=== PATIENT | female | born 1930 | race Caucasian/White ===

== ENCOUNTER 2018-09-09 15:20 | Inpatient (IN) | payer MEDICARE, BC ==
[2018-09-09] MEDS: Sodium Chloride 0.9% 1,000 ML IV SCH (17:10)
[2018-09-09] MEDS ORDERED: Phytonadione 5 MG in Sodium Chloride 0.9% 50 ML IV ONE (18:55)
[2018-09-09] MEDS ORDERED: Bisacodyl 5 MG Tab PO PRN (18:59)
[2018-09-09] MEDS ORDERED: Ondansetron 4 MG/2 ML SDV IV PRN (18:59)
[2018-09-09] MEDS ORDERED: Acetaminophen 325 MG Tab PO PRN (18:59)
[2018-09-10] MEDS: Sodium Chloride 0.9% 1,000 ML IV SCH ×2 (00:20→07:11)
--- NOTE | 2018-09-10 06:25 | EDM.PDOC ---
ED HPI GENERAL MEDICAL PROBLEM - General Chief Complaint: Gastrointestinal Problem Stated Complaint: BLOODY STOOLS Time Seen by Provider: 09/09/18 16:00 Source of Information: Reports: Patient History Limitations: Reports: No Limitations - History of Present Illness INITIAL COMMENTS - FREE TEXT/NARRATIVE: This pleasant 88-year-old woman who looks her age has had tar back pain or lower extremity pain or swelling. Her week. Coughs occasionally. No history of cancer recent colonoscopy ulcer disease salpingitis. Alcoholism. She is on Coumadin for atrial fibrillation has, congestive heart failure hypertension COPD dyslipidemia. ry stools last 2 days Jesusita's 56 bloody stools per day. Feels weak and tired and lightheaded denies chest pain shortness of breath headache neck stiffness - Related Data Allergies Allergy/AdvReac Type Severity Reaction Status Date / Time No Known Allergies Allergy Verified 02/18/14 13:51 Home Meds: Home Meds Lisinopril 10 mg PO DAILY 02/18/14 [History] Ciclopirox [Loprox 0.77% Crm] 1 applic TOP BID #1 tube 06/12/18 [Rx] Furosemide [Lasix] 60 mg PO BIDDIURETIC #120 tablet 06/12/18 [Rx] Potassium Chloride [Klor-Con 8] 8 meq PO BID #60 tab.er 06/12/18 [Rx] Acetaminophen 1,000 mg PO TID PRN 09/09/18 [History] Albuterol Sulfate [Proair Hfa] 2 inh INH Q4H PRN 09/09/18 [History] Calcium Carbonate/Vitamin D3 [Calcium Carb 500 MG] 1,250 mg PO DAILY 09/09/18 [ History] Cholecalciferol (Vitamin D3) [Vitamin D3] 1,000 units PO DAILY 09/09/18 [History ] Clopidogrel [Plavix] 75 mg PO DAILY 09/09/18 [History] Metoprolol Succinate [Toprol XL 50mg] 150 mg PO DAILY 09/09/18 [History] Pravastatin Sodium [Pravachol] 20 mg PO DAILY 09/09/18 [History] Warfarin [Coumadin] 5 mg PO DAILY 09/09/18 [History] Past Medical History HEENT History: Reports: Other (See Below) Other HEENT History: blepharitis roxane; pseudophakia-right; hyperopia; astigmatism ; prebyopia Cardiovascular History: Reports: Afib, High Cholesterol, Hypertension, Other ( See Below) Other Cardiovascular History: [facility] use of anticoagulant therapy Respiratory History: Reports: SOB NURSING SPECIALIST History: Reports: Musculoskeletal History: Reports: Osteoarthritis, Osteoporosis - Infectious Disease History Infectious Disease History: Reports: Mumps - Past Surgical History HEENT Surgical History: Reports: Cataract Surgery Musculoskeletal Surgical History: Reports: Other (See Below) Other Musculoskeletal Surgeries/Procedures:: total hip arthroplasty Social & Family History - Family History Family Medical History: Noncontributory - Tobacco Use Smoking Status *Q: Never Smoker Second Hand Smoke Exposure: No - Caffeine Use Caffeine Use: Reports: Coffee Other Caffeine Use: 2 cups a day Caffeine Use Comment: 1-2 cups per day - Recreational Drug Use Recreational Drug Use: No ED ROS GENERAL - Review of Systems Review Of Systems: See Below Constitutional: Reports: Other (Week slightly lightheaded) HEENT: Reports: No Symptoms, Other (Resecuring) Respiratory: Reports: No Symptoms Cardiovascular: Reports: No Symptoms, Other (A. fib) Endocrine: Reports: No Symptoms, Other (Hypothyroidism) GI/Abdominal: Reports: Other (No abdominal pain with associated melena past 2 days) : Reports: No Symptoms, Other (Occasional incontinence) Musculoskeletal: Reports: Other (Weakness) Skin: Reports: No Symptoms Neurological: Reports: Other (Weakness) Psychiatric: Reports: No Symptoms Hematologic/Lymphatic: Reports: Anemia Immunologic: Reports: No Symptoms ED EXAM, GENERAL - Physical Exam Exam: See Below Free Text/Narrative:: This asthenic 88-year-old woman looks slightly pale no jaundice no scleral icterus and is without abdominal pain but notes she has black stools for the last 2 days. Exam Limited By: No Limitations General Appearance: Alert, Mild Distress Eye Exam: Bilateral Eye: Normal Inspection, Other (Pale conjunctiva pal[place]bra ) Ear Exam: Bilateral Ear: Auricle Normal, Canal Normal, TM normal, Other ( Bilateral decreased hearing) Nose: Normal Inspection Throat/Mouth: Normal Inspection, Other (Dry oral mucosa) Head: Atraumatic Neck: Normal Inspection, Other (Normal bruits) Respiratory/Chest: No Respiratory Distress, Lungs Clear, Normal Breath Sounds, No Accessory Muscle Use, Chest Non-Tender, Other (Occasional posterior scattered rales) Cardiovascular: No Edema (S4 gallop), Systolic Murmur, Irregularly Irregular, Other (Atrial fibrillation with controlled rate) Peripheral Pulses: 1+: Radial (L), Radial (R) GI/Abdominal: Normal Bowel Sounds, Soft, Non-Tender, No Organomegaly, No Distention, No Abnormal Bruit, No Mass, Other (Black stool positive Hemoccult) (Female) Exam: Deferred Rectal (Female) Exam: Other ( decreased muscle tone rectum character) Neurological: Alert, Oriented, CN II-XII Intact, Normal Cognition, Normal Gait, Other (Absent deep tendon reflexes) Psychiatric: Normal Affect, Other (Quiet not anxious) Skin Exam: Warm, Dry, Intact, Pallor Course - Vital Signs Last Recorded V/S: Last Vital Signs Temp 36.6 C 09/10/18 04:00 Pulse 70 09/10/18 04:00 Resp 18 09/10/18 04:00 BP 125/75 09/10/18 04:00 Pulse Ox 96 09/10/18 04:00 - Orders/Labs/Meds Orders: Active Orders 24 hr Category Date Time Status Patient Status [ADT] Routine ADT 09/09/18 18:59 Active Cardiac Monitoring [RC] INTERMITTENT Care 09/09/18 19:06 Inactive EKG Documentation Completion [RC] ASDIRECTED Care 09/09/18 16:31 Active Intake and Output [RC] QSHIFT Care 09/09/18 19:06 Active Notify Provider Vital Signs [RC] ASDIRECTED Care 09/09/18 19:06 Active Oxygen Therapy [RC] PRN Care 09/09/18 18:59 Active Pulse Oximetry [RC] PRN Care 09/09/18 19:06 Active Up With Assistance [RC] ASDIRECTED Care 09/09/18 18:59 Active Vital Signs [RC] Q4H Care 09/09/18 18:59 Active Full Liquid Diet [DIET] Diet 09/09/18 Dinner Ordered Heart Healthy Diet [DIET] Diet 09/09/18 Dinner Ordered BASIC METABOLIC PANEL,BMP [CHEM] AM Lab 09/10/18 05:11 Ordered CBC WITH AUTO DIFF [HEME] AM Lab 09/10/18 05:11 Ordered INR,PT,PROTHROMBIN TIME [COAG] AM Lab 09/10/18 05:11 Ordered Acetaminophen [Tylenol] Med 09/09/18 18:59 Active 650 mg PO Q4H PRN Bisacodyl [Dulcolax] Med 09/09/18 18:59 Active 5 mg PO DAILY PRN Ondansetron [Zofran] Med 09/09/18 18:59 Active 4 mg IV Q4H PRN Sodium Chloride 0.9% [Normal Saline] 1,000 ml Med 09/09/18 16:45 Active IV ASDIRECTED Antiembolic Hose [OM.PC] Per Unit Routine Oth 09/09/18 19:06 Ordered Resuscitation Status Routine Resus Stat 09/09/18 18:59 Ordered EKG 12 Lead [EK] Routine Ther 09/09/18 16:31 Ordered Medication Orders Acetaminophen (Tylenol) 650 mg PO Q4H PRN PRN Reason: Pain (Mild 1-3)/fever Bisacodyl (Dulcolax) 5 mg PO DAILY PRN PRN Reason: Constipation Sodium Chloride (Normal Saline) 1,000 mls @ 150 mls/hr IV ASDIRECTED ARCELIA Last Admin: 09/10/18 00:20 Dose: 150 mls/hr Infusion: 09/09/18 23:51 Dose: 150 mls/hr Admin: 09/09/18 17:10 Dose: 150 mls/hr Ondansetron HCl (Zofran) 4 mg IV Q4H PRN PRN Reason: Nausea/Vomiting Labs: Laboratory Tests 09/09/18 09/09/18 09/09/18 Range/Units 16:55 16:55 16:55 WBC 7.0 (4.5-12.0) X10-3/uL RBC 3.03 L (3.23-5.20) x10(6)uL Hgb 9.4 L D (11.5-15.5) g/dL Hct 28.5 L D (30.0-51.3) % MCV 94.3 (80-96) fL MCH 31.0 (27.7-33.6) pg MCHC 32.9 (32.2-35.4) g/dL RDW 13.9 (11.5-15.5) % Plt Count 282 (125-369) X10(3)uL MPV 7.9 (7.4-10.4) fL Neut % (Auto) 62.9 (46-82) % Lymph % (Auto) 22.4 (13-37) % Whitman % (Auto) 9.9 (4-12) % Eos % (Auto) 4 (1.0-5.0) % Baso % (Auto) 1 (0-2) % Neut # (Auto) 4.3 (1.6-8.3) # Lymph # (Auto) 1.6 (0.6-5.0) # Whitman # (Auto) 0.7 (0.0-1.3) # Eos # (Auto) 0.3 (0.0-0.8) # Baso # (Auto) 0.1 (0.0-0.2) # PT 35.0 H* (8.7-11.1) INR 3.66 H (0.89-1.13) APTT 32.4 (24.4-33.2) SECONDS Sodium (135-145) mmol/L Potassium (3.5-5.3) mmol/L Chloride (100-110) mmol/L Carbon Dioxide (21-32) mmol/L BUN (7-18) mg/dL Creatinine (0.55-1.02) mg/dL Est Cr Clr Drug Dosing Estimated GFR (MDRD) (>60) BUN/Creatinine Ratio (9-20) Glucose (80-116) mg/dL Calcium (8.6-10.2) mg/dL Total Bilirubin (0.1-1.3) mg/dL AST (5-25) IU/L ALT (12-36) U/L Alkaline Phosphatase (56-112) IU/L Total Protein (6.0-8.0) g/dL Albumin (2.9-4.5) g/dL Globulin g/dL Albumin/Globulin Ratio 09/09/18 09/09/18 Range/Units 16:55 19:35 WBC (4.5-12.0) X10-3/uL RBC (3.23-5.20) x10(6)uL Hgb 9.2 L (11.5-15.5) g/dL Hct (30.0-51.3) % MCV (80-96) fL MCH (27.7-33.6) pg MCHC (32.2-35.4) g/dL RDW (11.5-15.5) % Plt Count (125-369) X10(3)uL MPV (7.4-10.4) fL Neut % (Auto) (46-82) % Lymph % (Auto) (13-37) % Whitman % (Auto) (4-12) % Eos % (Auto) (1.0-5.0) % Baso % (Auto) (0-2) % Neut # (Auto) (1.6-8.3) # Lymph # (Auto) (0.6-5.0) # Whitman # (Auto) (0.0-1.3) # Eos # (Auto) (0.0-0.8) # Baso # (Auto) (0.0-0.2) # PT (8.7-11.1) INR (0.89-1.13) APTT (24.4-33.2) SECONDS Sodium 142 (135-145) mmol/L Potassium 4.0 (3.5-5.3) mmol/L Chloride 106 D (100-110) mmol/L Carbon Dioxide 30 (21-32) mmol/L BUN 49 H D (7-18) mg/dL Creatinine 1.4 H (0.55-1.02) mg/dL Est Cr Clr Drug Dosing TNP Estimated GFR (MDRD) 35 L (>60) BUN/Creatinine Ratio 35.0 H (9-20) Glucose 109 (80-116) mg/dL Calcium 9.3 (8.6-10.2) mg/dL Total Bilirubin 0.5 (0.1-1.3) mg/dL AST 19 D (5-25) IU/L ALT 20 D (12-36) U/L Alkaline Phosphatase 59 (56-112) IU/L Total Protein 6.7 (6.0-8.0) g/dL Albumin 3.3 (2.9-4.5) g/dL Globulin 3.4 g/dL Albumin/Globulin Ratio 1.0 Meds: Medications Generic Name Dose Route Start Last Admin Trade Name Freq PRN Reason Stop Dose Admin Acetaminophen 650 mg 09/09/18 18:59 Tylenol PO Q4H PRN Pain (Mild 1-3)/fever Bisacodyl 5 mg 09/09/18 18:59 Dulcolax PO DAILY PRN Constipation Sodium Chloride 1,000 mls @ 150 mls/hr 09/09/18 16:45 09/10/18 00:20 Normal Saline IV 150 mls/hr ASDIRECTED ARCELIA Administration Ondansetron HCl 4 mg 09/09/18 18:59 Zofran IV Q4H PRN Nausea/Vomiting Discontinued Medications Generic Name Dose Route Start Last Admin Trade Name Lise PRN Reason Stop Dose Admin Phytonadione 5 mg/ Sodium 50.5 mls @ 100 mls/hr 09/09/18 18:55 09/09/18 20:40 Chloride IV 09/09/18 19:25 100 mls/hr NOW ONE Administration Departure - Departure Time of Disposition: 17:00 (Admission follow GI bleed serial hemoglobins at present has blood drawn for type and cross but no order placed. Upper GI bleed proximal to the ligament of Treitz will need endoscopy perhaps tomorrow) Disposition: Admitted As Inpatient 65 Condition: Good Clinical Impression: GI bleed Qualifiers: GI bleed type/associated pathology: unspecified gastrointestinal hemorrhage type Qualified Code(s): K92.2 - Gastrointestinal hemorrhage, unspecified - Discharge Information - My Orders Last 24 Hours: My Active Orders 09/09/18 16:31 EKG Documentation Completion [RC] ASDIRECTED EKG 12 Lead [EK] Routine 09/09/18 16:45 Sodium Chloride 0.9% [Normal Saline] 1,000 ml IV ASDIRECTED 09/09/18 18:59 Patient Status [ADT] Routine Oxygen Therapy [RC] PRN Up With Assistance [RC] ASDIRECTED Vital Signs [RC] Q4H Acetaminophen [Tylenol] 650 mg PO Q4H PRN Bisacodyl [Dulcolax] 5 mg PO DAILY PRN Ondansetron [Zofran] 4 mg IV Q4H PRN Resuscitation Status Routine 09/09/18 19:06 Cardiac Monitoring [RC] INTERMITTENT Intake and Output [RC] QSHIFT Notify Provider Vital Signs [RC] ASDIRECTED Pulse Oximetry [RC] PRN Antiembolic Hose [OM.PC] Per Unit Routine 09/09/18 Dinner Full Liquid Diet [DIET] Heart Healthy Diet [DIET] 09/10/18 05:11 BASIC METABOLIC PANEL,BMP [CHEM] AM CBC WITH AUTO DIFF [HEME] AM INR,PT,PROTHROMBIN TIME [COAG] AM - Assessment/Plan Last 24 Hours: My Active Orders 09/09/18 16:31 EKG Documentation Completion [RC] ASDIRECTED EKG 12 Lead [EK] Routine 09/09/18 16:45 Sodium Chloride 0.9% [Normal Saline] 1,000 ml IV ASDIRECTED 09/09/18 18:59 Patient Status [ADT] Routine Oxygen Therapy [RC] PRN Up With Assistance [RC] ASDIRECTED Vital Signs [RC] Q4H Acetaminophen [Tylenol] 650 mg PO Q4H PRN Bisacodyl [Dulcolax] 5 mg PO DAILY PRN Ondansetron [Zofran] 4 mg IV Q4H PRN Resuscitation Status Routine 09/09/18 19:06 Cardiac Monitoring [RC] INTERMITTENT Intake and Output [RC] QSHIFT Notify Provider Vital Signs [RC] ASDIRECTED Pulse Oximetry [RC] PRN Antiembolic Hose [OM.PC] Per Unit Routine 09/09/18 Dinner Full Liquid Diet [DIET] Heart Healthy Diet [DIET] 09/10/18 05:11 BASIC METABOLIC PANEL,BMP [CHEM] AM CBC WITH AUTO DIFF [HEME] AM INR,PT,PROTHROMBIN TIME [COAG] AM
[2018-09-10] MEDS ORDERED: Albuterol 8 GM Inhaler INH PRN (09:18)
[2018-09-10] MEDS ORDERED: Acetaminophen 500 MG Tab PO PRN (09:18)
--- NOTE | 2018-09-10 09:19 | PCM.HP ---
H&P History of Present Illness - General Date of Service: 09/10/18 Admit Problem/Dx: Admission Diagnosis/Problem Admission Diagnosis/Problem Gastric ulcer with hemorrhage Source of Information: Patient History Limitations: Reports: No Limitations - History of Present Illness Initial Comments - Free Text/Narative: Mr. Stephenson was admitted because of anemia. She presents today ER last night , complaining of 2 days of fatigue,dizziness and black tarry stools. She has a history of coronary disease with a stent placed in July and is currently Plavix. She also has a history of CHF, afib- and is on chronic anticoagulation with Coumadin. She denies any nausea vomiting ,and also denies having abdominal pain, chest pain or shortness of breath. No diarrhea as such,and no urinary symptoms. - Related Data Allergies/Adverse Reactions: Allergies Allergy/AdvReac Type Severity Reaction Status Date / Time No Known Allergies Allergy Verified 02/18/14 13:51 Home Medications: Home Meds Lisinopril 10 mg PO DAILY 02/18/14 [History] Ciclopirox [Loprox 0.77% Crm] 1 applic TOP BID #1 tube 06/12/18 [Rx] Furosemide [Lasix] 60 mg PO BIDDIURETIC #120 tablet 06/12/18 [Rx] Potassium Chloride [Klor-Con 8] 8 meq PO BID #60 tab.er 06/12/18 [Rx] Acetaminophen 1,000 mg PO TID PRN 09/09/18 [History] Albuterol Sulfate [Proair Hfa] 2 inh INH Q4H PRN 09/09/18 [History] Calcium Carbonate/Vitamin D3 [Calcium Carb 500 MG] 1,250 mg PO DAILY 09/09/18 [ History] Cholecalciferol (Vitamin D3) [Vitamin D3] 1,000 units PO DAILY 09/09/18 [History ] Clopidogrel [Plavix] 75 mg PO DAILY 09/09/18 [History] Metoprolol Succinate [Toprol XL 50mg] 150 mg PO DAILY 09/09/18 [History] Pravastatin Sodium [Pravachol] 20 mg PO DAILY 09/09/18 [History] Warfarin [Coumadin] 5 mg PO DAILY 09/09/18 [History] Past Medical History HEENT History: Reports: Other (See Below) Other HEENT History: blepharitis roxane; pseudophakia-right; hyperopia; astigmatism ; prebyopia Cardiovascular History: Reports: Afib, High Cholesterol, Hypertension, Other ( See Below) Other Cardiovascular History: retirement use of anticoagulant therapy Respiratory History: Reports: SOB [employer] History: Reports: Musculoskeletal History: Reports: Osteoarthritis, Osteoporosis - Infectious Disease History Infectious Disease History: Reports: Mumps - Past Surgical History HEENT Surgical History: Reports: Cataract Surgery Musculoskeletal Surgical History: Reports: Other (See Below) Other Musculoskeletal Surgeries/Procedures:: total hip arthroplasty Social & Family History - Family History Family Medical History: Noncontributory - Tobacco Use Smoking Status *Q: Never Smoker Second Hand Smoke Exposure: No - Caffeine Use Caffeine Use: Reports: Coffee Other Caffeine Use: 2 cups a day Caffeine Use Comment: 1-2 cups per day - Recreational Drug Use Recreational Drug Use: No H&P Review of Systems - Review of Systems: Review Of Systems: ROS reveals no pertinent complaints other than HPI. Exam - Exam Exam: See Below - Vital Signs Vital Signs: Last Vital Signs Temp 97.6 F 09/10/18 08:00 Pulse 70 09/10/18 04:00 Resp 20 09/10/18 08:00 BP 124/60 09/10/18 08:00 Pulse Ox 97 09/10/18 08:00 Weight: 83.915 kg - Exam General: Alert, Oriented, 4 HEENT: PERRLA, Hearing Intact, Mucosa Moist & Thor, Nares Patent, Normal Nasal Septum, Posterior Pharynx Clear, Conjunctiva Clear, EOMI, EACs Clear, TMs Clear Neck: Supple, Trachea Midline, 2 Lungs: Clear to Auscultation, Normal Respiratory Effort Cardiovascular: Irregular Rhythm, Systolic Murmur GI/Abdominal Exam: Normal Bowel Sounds, Soft, Non-Tender, No Organomegaly, No Distention, No Abnormal Bruit, No Mass, Pelvis Stable (Female) Exam: Deferred Rectal (Female) Exam: Black Stool, Heme + Stool Back Exam: Normal Inspection, Full Range of Motion, NT Extremities: Normal Inspection, Normal Range of Motion, Non-Tender, No Pedal Edema, Normal Capillary Refill Skin: Warm, Dry, Intact Neurological: Cranial Nerves Intact, Reflexes Equal Bilateral Neuro Extensive - Mental Status: Alert, Oriented x3, Normal Mood/Affect, Normal Cognition Neuro Extensive - Motor, Sensory, Reflexes: CN II-XII Intact, Normal Gait, Normal Reflexes Psychiatric: Alert, Normal Affect, Normal Mood - Patient Data Lab Results Last 24 hrs: Laboratory Results - last 24 hr 09/09/18 09/09/18 09/09/18 Range/Units 16:55 16:55 16:55 WBC 7.0 (4.5-12.0) X10-3/uL RBC 3.03 L (3.23-5.20) x10(6)uL Hgb 9.4 L D (11.5-15.5) g/dL Hct 28.5 L D (30.0-51.3) % MCV 94.3 (80-96) fL MCH 31.0 (27.7-33.6) pg MCHC 32.9 (32.2-35.4) g/dL RDW 13.9 (11.5-15.5) % Plt Count 282 (125-369) X10(3)uL MPV 7.9 (7.4-10.4) fL Neut % (Auto) 62.9 (46-82) % Lymph % (Auto) 22.4 (13-37) % [place] % (Auto) 9.9 (4-12) % Eos % (Auto) 4 (1.0-5.0) % Baso % (Auto) 1 (0-2) % Neut # (Auto) 4.3 (1.6-8.3) # Lymph # (Auto) 1.6 (0.6-5.0) # [place] # (Auto) 0.7 (0.0-1.3) # Eos # (Auto) 0.3 (0.0-0.8) # Baso # (Auto) 0.1 (0.0-0.2) # PT 35.0 H* (8.7-11.1) INR 3.66 H (0.89-1.13) APTT 32.4 (24.4-33.2) SECONDS Sodium (135-145) mmol/L Potassium (3.5-5.3) mmol/L Chloride (100-110) mmol/L Carbon Dioxide (21-32) mmol/L BUN (7-18) mg/dL Creatinine (0.55-1.02) mg/dL Est Cr Clr Drug Dosing Estimated GFR (MDRD) (>60) BUN/Creatinine Ratio (9-20) Glucose (80-116) mg/dL Calcium (8.6-10.2) mg/dL Total Bilirubin (0.1-1.3) mg/dL AST (5-25) IU/L ALT (12-36) U/L Alkaline Phosphatase (56-112) IU/L Total Protein (6.0-8.0) g/dL Albumin (2.9-4.5) g/dL Globulin g/dL Albumin/Globulin Ratio 09/09/18 09/09/18 09/09/18 Range/Units 16:55 19:35 21:20 WBC (4.5-12.0) X10-3/uL RBC (3.23-5.20) x10(6)uL Hgb 9.2 L 9.0 L (11.5-15.5) g/dL Hct (30.0-51.3) % MCV (80-96) fL MCH (27.7-33.6) pg MCHC (32.2-35.4) g/dL RDW (11.5-15.5) % Plt Count (125-369) X10(3)uL MPV (7.4-10.4) fL Neut % (Auto) (46-82) % Lymph % (Auto) (13-37) % [place] % (Auto) (4-12) % Eos % (Auto) (1.0-5.0) % Baso % (Auto) (0-2) % Neut # (Auto) (1.6-8.3) # Lymph # (Auto) (0.6-5.0) # [place] # (Auto) (0.0-1.3) # Eos # (Auto) (0.0-0.8) # Baso # (Auto) (0.0-0.2) # PT (8.7-11.1) INR (0.89-1.13) APTT (24.4-33.2) SECONDS Sodium 142 (135-145) mmol/L Potassium 4.0 (3.5-5.3) mmol/L Chloride 106 D (100-110) mmol/L Carbon Dioxide 30 (21-32) mmol/L BUN 49 H D (7-18) mg/dL Creatinine 1.4 H (0.55-1.02) mg/dL Est Cr Clr Drug Dosing TNP Estimated GFR (MDRD) 35 L (>60) BUN/Creatinine Ratio 35.0 H (9-20) Glucose 109 (80-116) mg/dL Calcium 9.3 (8.6-10.2) mg/dL Total Bilirubin 0.5 (0.1-1.3) mg/dL AST 19 D (5-25) IU/L ALT 20 D (12-36) U/L Alkaline Phosphatase 59 (56-112) IU/L Total Protein 6.7 (6.0-8.0) g/dL Albumin 3.3 (2.9-4.5) g/dL Globulin 3.4 g/dL Albumin/Globulin Ratio 1.0 09/09/18 09/10/18 09/10/18 Range/Units 23:38 03:30 06:10 WBC 6.4 (4.5-12.0) X10-3/uL RBC 2.53 L (3.23-5.20) x10(6)uL Hgb 8.8 L 8.0 L 8.0 L (11.5-15.5) g/dL Hct 23.5 L (30.0-51.3) % MCV 92.8 (80-96) fL MCH 31.6 (27.7-33.6) pg MCHC 34.0 (32.2-35.4) g/dL RDW 13.9 (11.5-15.5) % Plt Count 223 (125-369) X10(3)uL MPV 8.0 (7.4-10.4) fL Neut % (Auto) 59.3 (46-82) % Lymph % (Auto) 23.9 (13-37) % [place] % (Auto) 11.0 (4-12) % Eos % (Auto) 5 (1.0-5.0) % Baso % (Auto) 1 (0-2) % Neut # (Auto) 3.9 (1.6-8.3) # Lymph # (Auto) 1.5 (0.6-5.0) # [place] # (Auto) 0.7 (0.0-1.3) # Eos # (Auto) 0.3 (0.0-0.8) # Baso # (Auto) 0.0 (0.0-0.2) # PT (8.7-11.1) INR (0.89-1.13) APTT (24.4-33.2) SECONDS Sodium (135-145) mmol/L Potassium (3.5-5.3) mmol/L Chloride (100-110) mmol/L Carbon Dioxide (21-32) mmol/L BUN (7-18) mg/dL Creatinine (0.55-1.02) mg/dL Est Cr Clr Drug Dosing Estimated GFR (MDRD) (>60) BUN/Creatinine Ratio (9-20) Glucose (80-116) mg/dL Calcium (8.6-10.2) mg/dL Total Bilirubin (0.1-1.3) mg/dL AST (5-25) IU/L ALT (12-36) U/L Alkaline Phosphatase (56-112) IU/L Total Protein (6.0-8.0) g/dL Albumin (2.9-4.5) g/dL Globulin g/dL Albumin/Globulin Ratio 09/10/18 09/10/18 Range/Units 06:10 06:10 WBC (4.5-12.0) X10-3/uL RBC (3.23-5.20) x10(6)uL Hgb (11.5-15.5) g/dL Hct (30.0-51.3) % MCV (80-96) fL MCH (27.7-33.6) pg MCHC (32.2-35.4) g/dL RDW (11.5-15.5) % Plt Count (125-369) X10(3)uL MPV (7.4-10.4) fL Neut % (Auto) (46-82) % Lymph % (Auto) (13-37) % [place] % (Auto) (4-12) % Eos % (Auto) (1.0-5.0) % Baso % (Auto) (0-2) % Neut # (Auto) (1.6-8.3) # Lymph # (Auto) (0.6-5.0) # [place] # (Auto) (0.0-1.3) # Eos # (Auto) (0.0-0.8) # Baso # (Auto) (0.0-0.2) # PT 18.0 H (8.7-11.1) INR 1.87 H (0.89-1.13) APTT (24.4-33.2) SECONDS Sodium 145 (135-145) mmol/L Potassium 3.8 (3.5-5.3) mmol/L Chloride 111 H D (100-110) mmol/L Carbon Dioxide 27 (21-32) mmol/L BUN 44 H (7-18) mg/dL Creatinine 1.0 (0.55-1.02) mg/dL Est Cr Clr Drug Dosing 32.93 Estimated GFR (MDRD) 52 L (>60) BUN/Creatinine Ratio 44.0 H (9-20) Glucose 91 (80-116) mg/dL Calcium 8.5 L (8.6-10.2) mg/dL Total Bilirubin (0.1-1.3) mg/dL AST (5-25) IU/L ALT (12-36) U/L Alkaline Phosphatase (56-112) IU/L Total Protein (6.0-8.0) g/dL Albumin (2.9-4.5) g/dL Globulin g/dL Albumin/Globulin Ratio Result Diagrams: 09/11/18 06:50 09/11/18 06:50 Glenn Results Last 24 hrs: Microbiology 09/09/18 16:40 Stool Occult Blood (GLENN) - Final Stool / Feces EKG INTERPRETATION Rhythm: A-Fib - Problem List (1) GI bleed SNOMED Code(s): 09860040 ICD Code: K92.2 - GASTROINTESTINAL HEMORRHAGE, UNSPECIFIED Status: Acute Current Visit: Yes Qualifiers: GI bleed type/associated pathology: unspecified gastrointestinal hemorrhage type Qualified Code(s): K92.2 - Gastrointestinal hemorrhage, unspecified (2) CAD (coronary artery disease) SNOMED Code(s): 39690675 ICD Code: I25.10 - ATHSCL HEART DISEASE OF [place] CORONARY ARTERY W/O ANG PCTRS Status: Acute Current Visit: Yes Qualifiers: Coronary Disease-Associated Artery/Lesion type: [place] artery Associated angina: without angina (3) Afib, Atrial fibrillation SNOMED Code(s): 13640618 ICD Code: I48.91 - UNSPECIFIED ATRIAL FIBRILLATION Status: Chronic Current Visit: No (4) Congestive heart failure due to left ventricular systolic dysfunction SNOMED Code(s): 474584762 ICD Code: I50.20 - UNSPECIFIED SYSTOLIC (CONGESTIVE) HEART FAILURE Status: Chronic Current Visit: No (5) HTN, Essential hypertension SNOMED Code(s): 91575351 ICD Code: I10 - ESSENTIAL (PRIMARY) HYPERTENSION Status: Chronic Current Visit: No (6) Long-term (current) use of anticoagulants, INR goal 2.0-3.0 SNOMED Code(s): 661727729, 262572597 ICD Code: Z79.01 - ROLL SETTER (CURRENT) USE OF ANTICOAGULANTS Status: Acute Current Visit: Yes (7) Palliative care patient SNOMED Code(s): 297535450 ICD Code: Z51.5 - ENCOUNTER FOR PALLIATIVE CARE Status: Acute Current Visit: Yes (8) Anemia SNOMED Code(s): 285650407 ICD Code: D64.9 - ANEMIA, UNSPECIFIED Status: Acute Current Visit: Yes Qualifiers: Iron deficiency anemia type: chronic blood loss Problem List Initiated/Reviewed/Updated: Yes Orders Last 24hrs: Active Orders 24 hr Category Date Time Status Patient Status [ADT] Routine ADT 09/09/18 18:59 Active Cardiac Monitoring [RC] INTERMITTENT Care 09/09/18 19:06 Inactive Intake and Output [RC] 06,, Care 09/09/18 19:06 Active Notify Provider Vital Signs [RC] ASDIRECTED Care 09/09/18 19:06 Active Oxygen Therapy [RC] PRN Care 09/09/18 18:59 Active Pulse Oximetry [RC] PRN Care 09/09/18 19:06 Active Up With Assistance [RC] ASDIRECTED Care 09/09/18 18:59 Active Vital Signs [RC] Q4H Care 09/09/18 18:59 Active Full Liquid Diet [DIET] Diet 09/09/18 Dinner Ordered Heart Healthy Diet [DIET] Diet 09/09/18 Dinner Ordered CBC WITH AUTO DIFF [HEME] Timed Lab 09/10/18 16:00 Ordered COMPREHENSIVE METABOLIC PN,CMP [CHEM] Timed Lab 09/10/18 16:00 Ordered Acetaminophen [Tylenol] Med 09/09/18 18:59 Active 650 mg PO Q4H PRN Bisacodyl [Dulcolax] Med 09/09/18 18:59 Active 5 mg PO DAILY PRN Ondansetron [Zofran] Med 09/09/18 18:59 Active 4 mg IV Q4H PRN Sodium Chloride 0.9% [Normal Saline] 1,000 ml Med 09/09/18 16:45 Active IV ASDIRECTED Antiembolic Hose [OM.PC] Per Unit Routine Oth 09/09/18 19:06 Ordered Resuscitation Status Routine Resus Stat 09/09/18 18:59 Ordered EKG 12 Lead [EK] Routine Ther 09/09/18 16:31 Ordered Medication Orders Acetaminophen (Tylenol) 650 mg PO Q4H PRN PRN Reason: Pain (Mild 1-3)/fever Bisacodyl (Dulcolax) 5 mg PO DAILY PRN PRN Reason: Constipation Sodium Chloride (Normal Saline) 1,000 mls @ 150 mls/hr IV ASDIRECTED [facility] Last Admin: 09/10/18 07:11 Dose: 150 mls/hr Infusion: 09/10/18 07:01 Dose: 150 mls/hr Admin: 09/10/18 00:20 Dose: 150 mls/hr Infusion: 09/09/18 23:51 Dose: 150 mls/hr Admin: 09/09/18 17:10 Dose: 150 mls/hr Ondansetron HCl (Zofran) 4 mg IV Q4H PRN PRN Reason: Nausea/Vomiting Assessment/Plan Comment:: Her hemoglobin in July was within normal range. The diarrhea is mild but likely from the upper GI. Given the age comorbid factors, I recommended gentle hydration, a PPI and repeat hemoglobin serially. I will also consult physical and occupational therapy .I will entertain transfusion,if symptoms continue- dizziness fatigue or worsening hemoglobin below 7. I don't feel that she will need an upper GI at this time will be considered in the future. For now I have held Coumadin ,but will continue Plavix
[2018-09-10] MEDS ORDERED: Sodium Chloride 0.9% 1,000 ML IV SCH (09:30)
[2018-09-10] MEDS: Clopidogrel 75 MG Tab PO SCH (11:22)
[2018-09-10] MEDS: Pantoprazole 40 MG Vial IVPUSH SCH (11:23)
[2018-09-10] MEDS: Furosemide 20 MG Tab PO SCH (14:48)
[2018-09-10] MEDS: Sodium Chloride 0.9% 10 ML Syringe FLUSH PRN (18:39)
[2018-09-10] MEDS: Potassium Chloride 8 MEQ Tab.ER PO SCH (20:13)
[2018-09-10] MEDS: Ciclopirox 0.77% Crm 15 GM Tube TOP SCH (20:49)
[2018-09-11] MEDS: Calcium Carbonate/Vitamin D3 1250 MG-200 Unit Tab PO SCH (08:37)
[2018-09-11] MEDS: Furosemide 20 MG Tab PO SCH ×2 (08:37→13:28)
[2018-09-11] MEDS: Potassium Chloride 8 MEQ Tab.ER PO SCH (08:38)
[2018-09-11] MEDS: Ciclopirox 0.77% Crm 15 GM Tube TOP SCH (08:38)
[2018-09-11] MEDS: Pravastatin 20 MG Tab PO SCH (08:39)
[2018-09-11] MEDS: Clopidogrel 75 MG Tab PO SCH (08:39)
[2018-09-11] MEDS: Lisinopril 10 MG Tab PO SCH (08:39)
[2018-09-11] MEDS: Cholecalciferol (Vitamin D3) 1,000 Unit Tab PO SCH (08:40)
[2018-09-11] MEDS: Pantoprazole 40 MG Vial IVPUSH SCH (08:41)
[2018-09-11] MEDS: Sodium Chloride 0.9% 10 ML Syringe FLUSH PRN ×2 (08:47→18:37)
[2018-09-11] MEDS ORDERED: Sodium Chloride 0.9% 250 ML IV SCH (09:00)
[2018-09-11] MEDS ORDERED: Metoprolol Succinate 50 MG Tab.ER PO SCH (09:00)
--- NOTE | 2018-09-11 09:13 | PCM.PN ---
- General Info Date of Service: 09/11/18 Subjective Update: Seema at an episode of dizziness this morning and lightheadedness when she got up. She had 1 stool last night the dose slightly dark. Denies chest pain or shortness of breath. Functional Status: Reports: Pain Controlled - Review of Systems General: Reports: Weakness, Fatigue HEENT: Reports: No Symptoms Pulmonary: Reports: No Symptoms Cardiovascular: Reports: No Symptoms - Patient Data Vitals - Most Recent: Last Vital Signs Temp 97.4 F 09/11/18 03:40 Pulse 72 09/11/18 08:40 Resp 17 09/11/18 03:40 BP 111/62 09/11/18 08:40 Pulse Ox 98 09/11/18 03:40 Weight - Most Recent: 83.915 kg I&O - Last 24 Hours: Intake & Output 09/10/18 09/11/18 09/11/18 22:59 06:59 14:59 Intake Total 1730 150 Output Total 2050 1125 Balance -320 -975 Lab Results Last 24 Hours: Laboratory Results - last 24 hr 09/10/18 09/10/18 09/10/18 Range/Units 06:10 16:06 16:06 WBC 7.4 (4.5-12.0) X10-3/uL RBC 2.85 L (3.23-5.20) x10(6)uL Hgb 8.9 L (11.5-15.5) g/dL Hct 26.5 L (30.0-51.3) % MCV 93.1 (80-96) fL MCH 31.4 (27.7-33.6) pg MCHC 33.7 (32.2-35.4) g/dL RDW 13.5 (11.5-15.5) % Plt Count 278 (125-369) X10(3)uL MPV 7.8 (7.4-10.4) fL Neut % (Auto) 66.3 (46-82) % Lymph % (Auto) 21.1 (13-37) % [place] % (Auto) 8.9 (4-12) % Eos % (Auto) 3 (1.0-5.0) % Baso % (Auto) 1 (0-2) % Neut # (Auto) 4.9 (1.6-8.3) # Lymph # (Auto) 1.6 (0.6-5.0) # [place] # (Auto) 0.7 (0.0-1.3) # Eos # (Auto) 0.2 (0.0-0.8) # Baso # (Auto) 0.0 (0.0-0.2) # PT (8.7-11.1) INR (0.89-1.13) Sodium 143 (135-145) mmol/L Potassium 4.0 (3.5-5.3) mmol/L Chloride 109 (100-110) mmol/L Carbon Dioxide 25 (21-32) mmol/L BUN 42 H (7-18) mg/dL Creatinine 1.0 (0.55-1.02) mg/dL Est Cr Clr Drug Dosing 32.93 mL/min Estimated GFR (MDRD) 52 L (>60) BUN/Creatinine Ratio 42.0 H (9-20) Glucose 104 (80-116) mg/dL Calcium 8.9 (8.6-10.2) mg/dL Total Bilirubin 0.8 (0.1-1.3) mg/dL AST 22 D (5-25) IU/L ALT 19 (12-36) U/L Alkaline Phosphatase 60 (56-112) IU/L Total Protein 7.3 (6.0-8.0) g/dL Albumin 3.3 (2.9-4.5) g/dL Globulin 4.0 g/dL Albumin/Globulin Ratio 0.8 Blood Type A POSITIVE Gel Antibody Screen Negative 09/11/18 09/11/18 09/11/18 Range/Units 06:50 06:50 06:50 WBC 6.1 (4.5-12.0) X10-3/uL RBC 2.49 L (3.23-5.20) x10(6)uL Hgb 7.8 L (11.5-15.5) g/dL Hct 23.5 L (30.0-51.3) % MCV 94.2 (80-96) fL MCH 31.5 (27.7-33.6) pg MCHC 33.4 (32.2-35.4) g/dL RDW 13.7 (11.5-15.5) % Plt Count 226 (125-369) X10(3)uL MPV 7.6 (7.4-10.4) fL Neut % (Auto) 54.6 (46-82) % Lymph % (Auto) 26.0 (13-37) % [place] % (Auto) 12.7 H (4-12) % Eos % (Auto) 6 H (1.0-5.0) % Baso % (Auto) 1 (0-2) % Neut # (Auto) 3.3 (1.6-8.3) # Lymph # (Auto) 1.6 (0.6-5.0) # [place] # (Auto) 0.8 (0.0-1.3) # Eos # (Auto) 0.4 (0.0-0.8) # Baso # (Auto) 0.0 (0.0-0.2) # PT 12.4 H (8.7-11.1) INR 1.28 H (0.89-1.13) Sodium 146 H (135-145) mmol/L Potassium 3.1 L (3.5-5.3) mmol/L Chloride 110 (100-110) mmol/L Carbon Dioxide 28 (21-32) mmol/L BUN 36 H (7-18) mg/dL Creatinine 1.0 (0.55-1.02) mg/dL Est Cr Clr Drug Dosing 32.93 mL/min Estimated GFR (MDRD) 52 L (>60) BUN/Creatinine Ratio 36.0 H (9-20) Glucose 88 (80-116) mg/dL Calcium 8.7 (8.6-10.2) mg/dL Total Bilirubin (0.1-1.3) mg/dL AST (5-25) IU/L ALT (12-36) U/L Alkaline Phosphatase (56-112) IU/L Total Protein (6.0-8.0) g/dL Albumin (2.9-4.5) g/dL Globulin g/dL Albumin/Globulin Ratio Blood Type Gel Antibody Screen Med Orders - Current: Current Medications Acetaminophen (Tylenol) 650 mg PO Q4H PRN PRN Reason: Pain (Mild 1-3)/fever Albuterol (Ventolin Hfa) 0 gm INH Q4H PRN PRN Reason: Dyspnea Bisacodyl (Dulcolax) 5 mg PO DAILY PRN PRN Reason: Constipation Calcium Carbonate (Calcium Carbonate/Vitamin D 1250 Mg-200 Unit) 1 tab PO DAILY [facility] Last Admin: 09/11/18 08:37 Dose: 1 tab Cholecalciferol (Vitamin D3) 1,000 units PO DAILY [facility] Last Admin: 09/11/18 08:40 Dose: 1,000 units Ciclopirox Olamine (Loprox 0.77% Crm) 0 gm TOP BID [facility] Last Admin: 09/11/18 08:38 Dose: Not Given Clopidogrel Bisulfate (Plavix) 75 mg PO DAILY [facility] Last Admin: 09/11/18 08:39 Dose: 75 mg Ferrous Sulfate (Ferrous Sulfate) 325 mg PO BIDMEALS [facility] Furosemide (Lasix) 60 mg PO BIDDIURETIC [facility] Last Admin: 09/11/18 08:37 Dose: 60 mg Sodium Chloride (Normal Saline) 250 mls @ 100 mls/hr IV ASDIRECTED [facility] Lisinopril (Prinivil) 10 mg PO DAILY [facility] Last Admin: 09/11/18 08:39 Dose: 10 mg Metoprolol Succinate (Toprol Xl) 50 mg PO DAILY [facility] Ondansetron HCl (Zofran) 4 mg IV Q4H PRN PRN Reason: Nausea/Vomiting Pantoprazole Sodium (Protonix Iv) 40 mg IVPUSH Q24H [facility] Last Admin: 09/11/18 08:41 Dose: 40 mg Potassium Chloride (Klor-Con M20) 20 meq PO DAILY [facility] Pravastatin Sodium (Pravachol) 20 mg PO DAILY [facility] Last Admin: 09/11/18 08:39 Dose: 20 mg Sodium Chloride (Saline Flush) 10 ml FLUSH ASDIRECTED PRN PRN Reason: saline flush for lock Last Admin: 09/11/18 08:47 Dose: 10 ml Discontinued Medications Sodium Chloride (Normal Saline) 1,000 mls @ 150 mls/hr IV ASDIRECTED [facility] Last Admin: 09/10/18 07:11 Dose: 150 mls/hr Phytonadione 5 mg/ Sodium (Chloride) 50.5 mls @ 100 mls/hr IV NOW ONE Stop: 09/09/18 19:25 Last Admin: 09/09/18 20:40 Dose: 100 mls/hr Sodium Chloride (Normal Saline) 1,000 mls @ 75 mls/hr IV ASDIRECTED [facility] Metoprolol Succinate (Toprol Xl) 150 mg PO DAILY [facility] Last Admin: 09/11/18 08:40 Dose: 150 mg Potassium Chloride (Klor-Con 8) 8 meq PO BID [facility] Last Admin: 09/11/18 08:38 Dose: 8 meq - Exam General: Alert, Other (pale) HEENT: Pupils Equal Neck: Supple Lungs: Clear to Auscultation Cardiovascular: Regular Rate - Problem List & Annotations (1) GI bleed SNOMED Code(s): 17729738 Code(s): K92.2 - GASTROINTESTINAL HEMORRHAGE, UNSPECIFIED Status: Acute Current Visit: Yes Qualifiers: GI bleed type/associated pathology: unspecified gastrointestinal hemorrhage type Qualified Code(s): K92.2 - Gastrointestinal hemorrhage, unspecified (2) CAD (coronary artery disease) SNOMED Code(s): 91815703 Code(s): I25.10 - ATHSCL HEART DISEASE OF [place] CORONARY ARTERY W/O ANG PCTRS Status: Acute Current Visit: Yes Qualifiers: Coronary Disease-Associated Artery/Lesion type: [place] artery Associated angina: without angina (3) Afib, Atrial fibrillation SNOMED Code(s): 87669008 Code(s): I48.91 - UNSPECIFIED ATRIAL FIBRILLATION Status: Chronic Current Visit: No (4) Congestive heart failure due to left ventricular systolic dysfunction SNOMED Code(s): 838378982 Code(s): I50.20 - UNSPECIFIED SYSTOLIC (CONGESTIVE) HEART FAILURE Status: Chronic Current Visit: No (5) HTN, Essential hypertension SNOMED Code(s): 92231143 Code(s): I10 - ESSENTIAL (PRIMARY) HYPERTENSION Status: Chronic Current Visit: No (6) Long-term (current) use of anticoagulants, INR goal 2.0-3.0 SNOMED Code(s): 457390737, 586551526 Code(s): Z79.01 - SHELTER (CURRENT) USE OF ANTICOAGULANTS Status: Acute Current Visit: Yes (7) Palliative care patient SNOMED Code(s): 977513837 Code(s): Z51.5 - ENCOUNTER FOR PALLIATIVE CARE Status: Acute Current Visit: Yes (8) Anemia SNOMED Code(s): 535646773 Code(s): D64.9 - ANEMIA, UNSPECIFIED Status: Acute Current Visit: Yes Qualifiers: Iron deficiency anemia type: chronic blood loss (9) Hypokalemia SNOMED Code(s): 79283110 Code(s): E87.6 - HYPOKALEMIA Status: Acute Current Visit: Yes - Problem List Review Problem List Initiated/Reviewed/Updated: Yes - My Orders Last 24 Hours: My Active Orders 09/10/18 09:00 Clopidogrel [Plavix] 75 mg PO DAILY 09/10/18 09:18 Albuterol [Ventolin HFA] 0 gm INH Q4H PRN 09/10/18 09:30 Pantoprazole [ProTONIX IV] 40 mg IVPUSH Q24H 09/10/18 14:00 Furosemide [Lasix] 60 mg PO BIDDIURETIC 09/10/18 15:38 OT Evaluation and Treatment [CONS] Routine PT Evaluation and Treatment [CONS] Routine Convert IV to Saline Lock [OM.PC] Routine 09/10/18 15:43 Sodium Chloride 0.9% [Saline Flush] 10 ml FLUSH ASDIRECTED PRN 09/10/18 21:00 Ciclopirox [Loprox 0.77% Crm] 0 gm TOP BID 09/10/18 Lunch Heart Healthy Diet [DIET] 09/11/18 09:00 Calcium Carbonate/Vitamin D3 [Calcium Carbonate/Vitamin D 1250 MG-200 Unit] 1 tab PO DAILY Cholecalciferol (Vitamin D3) [Vitamin D3] 1,000 units PO DAILY Lisinopril [Prinivil] 10 mg PO DAILY Potassium Chloride [Klor-Con M20] 20 meq PO DAILY Pravastatin [Pravachol] 20 mg PO DAILY Sodium Chloride 0.9% [Normal Saline] 250 ml IV ASDIRECTED Transfuse PRBC [Transfuse Red Blood Cells] [COMM] Urgent 09/11/18 16:00 CBC WITH AUTO DIFF [HEME] Routine 09/12/18 05:11 BASIC METABOLIC PANEL,BMP [CHEM] AM CBC WITH AUTO DIFF [HEME] AM RED BLOOD CELLS LP [BBK] AM 09/12/18 08:00 Ferrous Sulfate 325 mg PO BIDMEALS 09/12/18 09:00 Metoprolol Succinate [Toprol XL] 50 mg PO DAILY - Plan Plan:: Hemoglobin has dropped to 7.8 and is symptomatic. I will order 2 PRBCs. Repeat labs in the morning ,continue PPI. Consider transfer for GI consultation if this continues,or perhaps General Surgery consult. Replace potassium today and iron starting tomorrow. I changed the metoprolol to 50 mg because of dizziness and lightheadedness
[2018-09-11] MEDS: Potassium Chloride 20 MEQ Tab.ER PO SCH (09:37)
[2018-09-12] MEDS: Potassium Chloride 20 MEQ Tab.ER PO SCH (08:41)
[2018-09-12] MEDS: Calcium Carbonate/Vitamin D3 1250 MG-200 Unit Tab PO SCH (08:41)
[2018-09-12] MEDS: Furosemide 20 MG Tab PO SCH ×2 (08:41→13:59)
[2018-09-12] MEDS: Ferrous Sulfate 325 MG Tab PO SCH ×2 (08:41→18:01)
[2018-09-12] MEDS: Clopidogrel 75 MG Tab PO SCH (08:42)
[2018-09-12] MEDS: Pravastatin 20 MG Tab PO SCH (08:42)
[2018-09-12] MEDS: Metoprolol Succinate 50 MG Tab.ER PO SCH (08:43)
[2018-09-12] MEDS: Lisinopril 10 MG Tab PO SCH (08:43)
[2018-09-12] MEDS: Cholecalciferol (Vitamin D3) 1,000 Unit Tab PO SCH (08:44)
[2018-09-12] MEDS: Pantoprazole 40 MG Vial IVPUSH SCH (08:44)
[2018-09-12] MEDS: Sodium Chloride 0.9% 10 ML Syringe FLUSH PRN ×2 (09:07→09:08)
--- NOTE | 2018-09-12 10:37 | PCM.PN ---
- General Info Date of Service: 09/12/18 Admission Dx/Problem (Free Text): Patient states she's doing well. She's not dizzy. She denies chest pain, shortness of breath. She had 1 BM last night and she does not know if it was black and tarry or not. She had 2 units of RBCs yesterday and is doing well. - Patient Data Vitals - Most Recent: Last Vital Signs Temp 97.7 F 09/12/18 04:40 Pulse 82 09/12/18 08:43 Resp 18 09/12/18 04:40 BP 119/64 09/12/18 08:43 Pulse Ox 92 L 09/12/18 04:40 Weight - Most Recent: 185 lb I&O - Last 24 Hours: Intake & Output 09/11/18 09/12/18 09/12/18 22:59 06:59 14:59 Intake Total 363 50 Output Total 650 400 Balance -287 -350 Lab Results Last 24 Hours: Laboratory Results - last 24 hr 09/10/18 09/11/18 09/12/18 Range/Units 06:10 22:00 06:20 WBC 8.1 7.2 (4.5-12.0) X10-3/uL RBC 3.25 3.29 (3.23-5.20) x10(6)uL Hgb 10.2 L 10.1 L (11.5-15.5) g/dL Hct 29.8 L 30.3 (30.0-51.3) % MCV 91.8 92.2 (80-96) fL MCH 31.4 30.8 (27.7-33.6) pg MCHC 34.3 33.4 (32.2-35.4) g/dL RDW 14.6 14.2 (11.5-15.5) % Plt Count 246 239 (125-369) X10(3)uL MPV 7.3 L 7.6 (7.4-10.4) fL Neut % (Auto) 63.2 55.8 (46-82) % Lymph % (Auto) 19.6 24.5 (13-37) % [place] % (Auto) 12.4 H 13.2 H (4-12) % Eos % (Auto) 4 6 H (1.0-5.0) % Baso % (Auto) 0 1 (0-2) % Neut # (Auto) 5.1 4.1 (1.6-8.3) # Lymph # (Auto) 1.6 1.8 (0.6-5.0) # [place] # (Auto) 1.0 0.9 (0.0-1.3) # Eos # (Auto) 0.4 0.4 (0.0-0.8) # Baso # (Auto) 0.0 0.0 (0.0-0.2) # Sodium (135-145) mmol/L Potassium (3.5-5.3) mmol/L Chloride (100-110) mmol/L Carbon Dioxide (21-32) mmol/L BUN (7-18) mg/dL Creatinine (0.55-1.02) mg/dL Est Cr Clr Drug Dosing mL/min Estimated GFR (MDRD) (>60) BUN/Creatinine Ratio (9-20) Glucose (80-116) mg/dL Calcium (8.6-10.2) mg/dL Blood Type A POSITIVE Gel Antibody Screen Negative Crossmatch See Detail 09/12/18 Range/Units 06:20 WBC (4.5-12.0) X10-3/uL RBC (3.23-5.20) x10(6)uL Hgb (11.5-15.5) g/dL Hct (30.0-51.3) % MCV (80-96) fL MCH (27.7-33.6) pg MCHC (32.2-35.4) g/dL RDW (11.5-15.5) % Plt Count (125-369) X10(3)uL MPV (7.4-10.4) fL Neut % (Auto) (46-82) % Lymph % (Auto) (13-37) % [place] % (Auto) (4-12) % Eos % (Auto) (1.0-5.0) % Baso % (Auto) (0-2) % Neut # (Auto) (1.6-8.3) # Lymph # (Auto) (0.6-5.0) # [place] # (Auto) (0.0-1.3) # Eos # (Auto) (0.0-0.8) # Baso # (Auto) (0.0-0.2) # Sodium 145 (135-145) mmol/L Potassium 3.2 L (3.5-5.3) mmol/L Chloride 107 (100-110) mmol/L Carbon Dioxide 29 (21-32) mmol/L BUN 29 H (7-18) mg/dL Creatinine 1.2 H (0.55-1.02) mg/dL Est Cr Clr Drug Dosing 27.44 mL/min Estimated GFR (MDRD) 42 L (>60) BUN/Creatinine Ratio 24.2 H (9-20) Glucose 91 (80-116) mg/dL Calcium 8.7 (8.6-10.2) mg/dL Blood Type Gel Antibody Screen Crossmatch Med Orders - Current: Current Medications Acetaminophen (Tylenol) 650 mg PO Q4H PRN PRN Reason: Pain (Mild 1-3)/fever Albuterol (Ventolin Hfa) 0 gm INH Q4H PRN PRN Reason: Dyspnea Bisacodyl (Dulcolax) 5 mg PO DAILY PRN PRN Reason: Constipation Calcium Carbonate (Calcium Carbonate/Vitamin D 1250 Mg-200 Unit) 1 tab PO DAILY [facility] Last Admin: 09/12/18 08:41 Dose: 1 tab Cholecalciferol (Vitamin D3) 1,000 units PO DAILY [facility] Last Admin: 09/12/18 08:44 Dose: 1,000 units Clopidogrel Bisulfate (Plavix) 75 mg PO DAILY [facility] Last Admin: 09/12/18 08:42 Dose: 75 mg Ferrous Sulfate (Ferrous Sulfate) 325 mg PO BIDMEALS [facility] Last Admin: 09/12/18 08:41 Dose: 325 mg Furosemide (Lasix) 60 mg PO BIDDIURETIC [facility] Last Admin: 09/12/18 08:41 Dose: 60 mg Sodium Chloride (Normal Saline) 250 mls @ 100 mls/hr IV ASDIRECTED [facility] Lisinopril (Prinivil) 10 mg PO DAILY [facility] Last Admin: 09/12/18 08:43 Dose: 10 mg Metoprolol Succinate (Toprol Xl) 50 mg PO DAILY [facility] Last Admin: 09/12/18 08:43 Dose: 50 mg Ondansetron HCl (Zofran) 4 mg IV Q4H PRN PRN Reason: Nausea/Vomiting Pantoprazole Sodium (Protonix Iv) 40 mg IVPUSH Q24H [facility] Last Admin: 09/12/18 08:44 Dose: 40 mg Potassium Chloride (Klor-Con M20) 20 meq PO DAILY [facility] Last Admin: 09/12/18 08:41 Dose: 20 meq Pravastatin Sodium (Pravachol) 20 mg PO DAILY [facility] Last Admin: 09/12/18 08:42 Dose: 20 mg Sodium Chloride (Saline Flush) 10 ml FLUSH ASDIRECTED PRN PRN Reason: saline flush for lock Last Admin: 09/12/18 09:08 Dose: 10 ml Discontinued Medications Ciclopirox Olamine (Loprox 0.77% Crm) 0 gm TOP BID [facility] Last Admin: 09/11/18 08:38 Dose: Not Given Sodium Chloride (Normal Saline) 1,000 mls @ 150 mls/hr IV ASDIRECTED [facility] Last Admin: 09/10/18 07:11 Dose: 150 mls/hr Phytonadione 5 mg/ Sodium (Chloride) 50.5 mls @ 100 mls/hr IV NOW ONE Stop: 09/09/18 19:25 Last Admin: 09/09/18 20:40 Dose: 100 mls/hr Sodium Chloride (Normal Saline) 1,000 mls @ 75 mls/hr IV ASDIRECTED [facility] Metoprolol Succinate (Toprol Xl) 150 mg PO DAILY [facility] Last Admin: 09/11/18 08:40 Dose: 150 mg Potassium Chloride (Klor-Con 8) 8 meq PO BID [facility] Last Admin: 09/11/18 08:38 Dose: 8 meq - Exam General: Alert, Oriented, Cooperative Lungs: Normal Respiratory Effort GI/Abdominal Exam: Normal Bowel Sounds, Soft, Non-Tender, No Distention - Problem List & Annotations (1) Anemia SNOMED Code(s): 529757329 Code(s): D64.9 - ANEMIA, UNSPECIFIED Status: Acute Current Visit: Yes Qualifiers: Iron deficiency anemia type: chronic blood loss (2) GI bleed SNOMED Code(s): 23697118 Code(s): K92.2 - GASTROINTESTINAL HEMORRHAGE, UNSPECIFIED Status: Acute Current Visit: Yes Qualifiers: GI bleed type/associated pathology: unspecified gastrointestinal hemorrhage type Qualified Code(s): K92.2 - Gastrointestinal hemorrhage, unspecified (3) Long-term (current) use of anticoagulants, INR goal 2.0-3.0 SNOMED Code(s): 987661193, 628775329 Code(s): 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 Continue to hold the Coumadin. 2. Ambulate with assist and up in the chair. 3. Follow hemoglobin and hematocrit tonight and a CBC in a.m. 4. Surgical consult has not been done. Patient appears to be getting better. If she gets worse than that will be considered
[2018-09-13] MEDS: Ferrous Sulfate 325 MG Tab PO SCH ×2 (09:08→17:59)
[2018-09-13] MEDS: Furosemide 20 MG Tab PO SCH ×2 (09:08→14:17)
[2018-09-13] MEDS: Clopidogrel 75 MG Tab PO SCH (09:09)
[2018-09-13] MEDS: Lisinopril 10 MG Tab PO SCH (09:09)
[2018-09-13] MEDS: Potassium Chloride 20 MEQ Tab.ER PO SCH (09:09)
[2018-09-13] MEDS: Pravastatin 20 MG Tab PO SCH (09:09)
[2018-09-13] MEDS: Calcium Carbonate/Vitamin D3 1250 MG-200 Unit Tab PO SCH (09:09)
[2018-09-13] MEDS: Metoprolol Succinate 50 MG Tab.ER PO SCH (09:09)
[2018-09-13] MEDS: Sodium Chloride 0.9% 10 ML Syringe FLUSH PRN (09:10)
[2018-09-13] MEDS: Pantoprazole 40 MG Vial IVPUSH SCH (09:10)
[2018-09-13] MEDS: Cholecalciferol (Vitamin D3) 1,000 Unit Tab PO SCH (09:10)
--- NOTE | 2018-09-13 09:12 | PCM.PN ---
- General Info Date of Service: 09/13/18 Admission Dx/Problem (Free Text): Patient has no complaints and she has no abdominal pain. She had a BM last night that was dark. The nurses reported was dark and tarry. He denies dizziness. - Patient Data Vitals - Most Recent: Last Vital Signs Temp 97.8 F 09/13/18 05:30 Pulse 58 L 09/13/18 05:30 Resp 18 09/13/18 05:30 BP 104/50 L 09/13/18 05:30 Pulse Ox 96 09/13/18 05:30 Weight - Most Recent: 182 lb 8 oz I&O - Last 24 Hours: Intake & Output 09/12/18 09/13/18 09/13/18 22:59 06:59 14:59 Output Total 400 600 Balance -400 -600 Lab Results Last 24 Hours: Laboratory Results - last 24 hr 09/12/18 09/13/18 09/13/18 Range/Units 13:30 06:40 06:40 WBC 7.3 (4.5-12.0) X10-3/uL RBC 3.23 (3.23-5.20) x10(6)uL Hgb 11.3 L 10.2 L (11.5-15.5) g/dL Hct 32.2 29.9 L (30.0-51.3) % MCV 92.7 (80-96) fL MCH 31.7 (27.7-33.6) pg MCHC 34.2 (32.2-35.4) g/dL RDW 14.3 (11.5-15.5) % Plt Count 262 (125-369) X10(3)uL MPV 7.6 (7.4-10.4) fL Neut % (Auto) 53.8 (46-82) % Lymph % (Auto) 27.2 (13-37) % [place] % (Auto) 13.3 H (4-12) % Eos % (Auto) 5 (1.0-5.0) % Baso % (Auto) 1 (0-2) % Neut # (Auto) 3.9 (1.6-8.3) # Lymph # (Auto) 2.0 (0.6-5.0) # [place] # (Auto) 1.0 (0.0-1.3) # Eos # (Auto) 0.4 (0.0-0.8) # Baso # (Auto) 0.0 (0.0-0.2) # Sodium 141 (135-145) mmol/L Potassium 3.4 L (3.5-5.3) mmol/L Chloride 104 (100-110) mmol/L Carbon Dioxide 30 (21-32) mmol/L BUN 28 H (7-18) mg/dL Creatinine 1.1 H (0.55-1.02) mg/dL Est Cr Clr Drug Dosing 29.94 mL/min Estimated GFR (MDRD) 47 L (>60) BUN/Creatinine Ratio 25.5 H (9-20) Glucose 87 (80-116) mg/dL Calcium 8.9 (8.6-10.2) mg/dL Med Orders - Current: Current Medications Acetaminophen (Tylenol) 650 mg PO Q4H PRN PRN Reason: Pain (Mild 1-3)/fever Albuterol (Ventolin Hfa) 0 gm INH Q4H PRN PRN Reason: Dyspnea Bisacodyl (Dulcolax) 5 mg PO DAILY PRN PRN Reason: Constipation Calcium Carbonate (Calcium Carbonate/Vitamin D 1250 Mg-200 Unit) 1 tab PO DAILY [facility] Last Admin: 09/12/18 08:41 Dose: 1 tab Cholecalciferol (Vitamin D3) 1,000 units PO DAILY [facility] Last Admin: 09/12/18 08:44 Dose: 1,000 units Clopidogrel Bisulfate (Plavix) 75 mg PO DAILY [facility] Last Admin: 09/12/18 08:42 Dose: 75 mg Ferrous Sulfate (Ferrous Sulfate) 325 mg PO BIDMEALS [facility] Last Admin: 09/12/18 18:01 Dose: 325 mg Furosemide (Lasix) 60 mg PO BIDDIURETIC [facility] Last Admin: 09/12/18 13:59 Dose: 60 mg Sodium Chloride (Normal Saline) 250 mls @ 100 mls/hr IV ASDIRECTED [facility] Lisinopril (Prinivil) 10 mg PO DAILY [facility] Last Admin: 09/12/18 08:43 Dose: 10 mg Metoprolol Succinate (Toprol Xl) 50 mg PO DAILY [facility] Last Admin: 09/12/18 08:43 Dose: 50 mg Ondansetron HCl (Zofran) 4 mg IV Q4H PRN PRN Reason: Nausea/Vomiting Pantoprazole Sodium (Protonix Iv) 40 mg IVPUSH Q24H [facility] Last Admin: 09/12/18 08:44 Dose: 40 mg Potassium Chloride (Klor-Con M20) 20 meq PO DAILY [facility] Last Admin: 09/12/18 08:41 Dose: 20 meq Pravastatin Sodium (Pravachol) 20 mg PO DAILY [facility] Last Admin: 09/12/18 08:42 Dose: 20 mg Sodium Chloride (Saline Flush) 10 ml FLUSH ASDIRECTED PRN PRN Reason: saline flush for lock Last Admin: 09/12/18 09:08 Dose: 10 ml Discontinued Medications Ciclopirox Olamine (Loprox 0.77% Crm) 0 gm TOP BID [facility] Last Admin: 09/11/18 08:38 Dose: Not Given Sodium Chloride (Normal Saline) 1,000 mls @ 150 mls/hr IV ASDIRECTED [facility] Last Admin: 09/10/18 07:11 Dose: 150 mls/hr Phytonadione 5 mg/ Sodium (Chloride) 50.5 mls @ 100 mls/hr IV NOW ONE Stop: 09/09/18 19:25 Last Admin: 09/09/18 20:40 Dose: 100 mls/hr Sodium Chloride (Normal Saline) 1,000 mls @ 75 mls/hr IV ASDIRECTED [facility] Metoprolol Succinate (Toprol Xl) 150 mg PO DAILY [facility] Last Admin: 09/11/18 08:40 Dose: 150 mg Potassium Chloride (Klor-Con 8) 8 meq PO BID [facility] Last Admin: 09/11/18 08:38 Dose: 8 meq - Exam General: Alert, Moderate Distress GI/Abdominal Exam: Normal Bowel Sounds, Soft, Non-Tender, No Distention, No Mass - Problem List & Annotations (1) Anemia SNOMED Code(s): 823984133 Code(s): D64.9 - ANEMIA, UNSPECIFIED Status: Acute Current Visit: Yes Qualifiers: Iron deficiency anemia type: chronic blood loss (2) GI bleed SNOMED Code(s): 55733910 Code(s): K92.2 - GASTROINTESTINAL HEMORRHAGE, UNSPECIFIED Status: Acute Current Visit: Yes Qualifiers: GI bleed type/associated pathology: unspecified gastrointestinal hemorrhage type Qualified Code(s): K92.2 - Gastrointestinal hemorrhage, unspecified (3) Long-term (current) use of anticoagulants, INR goal 2.0-3.0 SNOMED Code(s): 025526715, 181224972 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 Continue to watch early swell more day and she can hemoglobin in the morning. 2. Continue to ambulate. 3. Guaiac any further stools.
--- NOTE | 2018-09-14 07:53 | PCM.PN ---
- General Info Date of Service: 09/14/18 Admission Dx/Problem (Free Text): Patient is without complaints. She denies dizziness, chest pain, palpitations, shortness of breath, leg swelling or abdominal pain. - Patient Data Vitals - Most Recent: Last Vital Signs Temp 97.5 F 09/14/18 02:30 Pulse 90 09/14/18 02:30 Resp 20 09/14/18 02:30 BP 104/58 L 09/14/18 02:30 Pulse Ox 96 09/14/18 02:30 Weight - Most Recent: 182 lb 8 oz I&O - Last 24 Hours: Intake & Output 09/13/18 09/14/18 09/14/18 22:59 06:59 14:59 Output Total 200 300 Balance -200 -300 Lab Results Last 24 Hours: Laboratory Results - last 24 hr 09/14/18 Range/Units 06:25 WBC 6.8 (4.5-12.0) X10-3/uL RBC 3.19 L (3.23-5.20) x10(6)uL Hgb 10.1 L (11.5-15.5) g/dL Hct 29.6 L (30.0-51.3) % MCV 92.9 (80-96) fL MCH 31.7 (27.7-33.6) pg MCHC 34.1 (32.2-35.4) g/dL RDW 13.8 (11.5-15.5) % Plt Count 269 (125-369) X10(3)uL MPV 7.6 (7.4-10.4) fL Neut % (Auto) 54.8 (46-82) % Lymph % (Auto) 27.1 (13-37) % [place] % (Auto) 11.1 (4-12) % Eos % (Auto) 6 H (1.0-5.0) % Baso % (Auto) 1 (0-2) % Neut # (Auto) 3.7 (1.6-8.3) # Lymph # (Auto) 1.8 (0.6-5.0) # [place] # (Auto) 0.8 (0.0-1.3) # Eos # (Auto) 0.4 (0.0-0.8) # Baso # (Auto) 0.1 (0.0-0.2) # [place] Results Last 24 Hours: Microbiology 09/13/18 14:10 Occult Blood - Preliminary Stool / Feces Med Orders - Current: Current Medications Acetaminophen (Tylenol) 650 mg PO Q4H PRN PRN Reason: Pain (Mild 1-3)/fever Albuterol (Ventolin Hfa) 0 gm INH Q4H PRN PRN Reason: Dyspnea Bisacodyl (Dulcolax) 5 mg PO DAILY PRN PRN Reason: Constipation Calcium Carbonate (Calcium Carbonate/Vitamin D 1250 Mg-200 Unit) 1 tab PO DAILY [facility] Last Admin: 09/13/18 09:09 Dose: 1 tab Cholecalciferol (Vitamin D3) 1,000 units PO DAILY [facility] Last Admin: 09/13/18 09:10 Dose: 1,000 units Clopidogrel Bisulfate (Plavix) 75 mg PO DAILY [facility] Last Admin: 09/13/18 09:09 Dose: 75 mg Ferrous Sulfate (Ferrous Sulfate) 325 mg PO BIDMEALS [facility] Last Admin: 09/13/18 17:59 Dose: 325 mg Furosemide (Lasix) 60 mg PO BIDDIURETIC [facility] Last Admin: 09/13/18 14:17 Dose: 60 mg Sodium Chloride (Normal Saline) 250 mls @ 100 mls/hr IV ASDIRECTED [facility] Lisinopril (Prinivil) 10 mg PO DAILY [facility] Last Admin: 09/13/18 09:09 Dose: 10 mg Metoprolol Succinate (Toprol Xl) 50 mg PO DAILY [facility] Last Admin: 09/13/18 09:09 Dose: 50 mg Ondansetron HCl (Zofran) 4 mg IV Q4H PRN PRN Reason: Nausea/Vomiting Pantoprazole Sodium (Protonix Iv) 40 mg IVPUSH Q24H [facility] Last Admin: 09/13/18 09:10 Dose: 40 mg Potassium Chloride (Klor-Con M20) 20 meq PO DAILY [facility] Last Admin: 09/13/18 09:09 Dose: 20 meq Pravastatin Sodium (Pravachol) 20 mg PO DAILY [facility] Last Admin: 09/13/18 09:09 Dose: 20 mg Sodium Chloride (Saline Flush) 10 ml FLUSH ASDIRECTED PRN PRN Reason: saline flush for lock Last Admin: 09/13/18 09:10 Dose: 10 ml Discontinued Medications Ciclopirox Olamine (Loprox 0.77% Crm) 0 gm TOP BID [facility] Last Admin: 09/11/18 08:38 Dose: Not Given Sodium Chloride (Normal Saline) 1,000 mls @ 150 mls/hr IV ASDIRECTED [facility] Last Admin: 09/10/18 07:11 Dose: 150 mls/hr Phytonadione 5 mg/ Sodium (Chloride) 50.5 mls @ 100 mls/hr IV NOW ONE Stop: 09/09/18 19:25 Last Admin: 09/09/18 20:40 Dose: 100 mls/hr Sodium Chloride (Normal Saline) 1,000 mls @ 75 mls/hr IV ASDIRECTED [facility] Metoprolol Succinate (Toprol Xl) 150 mg PO DAILY [facility] Last Admin: 09/11/18 08:40 Dose: 150 mg Potassium Chloride (Klor-Con 8) 8 meq PO BID [facility] Last Admin: 09/11/18 08:38 Dose: 8 meq - Exam General: Alert, Oriented Lungs: Clear to Auscultation, Normal Respiratory Effort Cardiovascular: Regular Rate, Regular Rhythm, No Murmurs GI/Abdominal Exam: Normal Bowel Sounds, Soft, Non-Tender, No Distention, No Mass - Problem List & Annotations (1) Anemia SNOMED Code(s): 424768755 Code(s): D64.9 - ANEMIA, UNSPECIFIED Status: Acute Current Visit: Yes Qualifiers: Iron deficiency anemia type: chronic blood loss (2) GI bleed SNOMED Code(s): 64175520 Code(s): K92.2 - GASTROINTESTINAL HEMORRHAGE, UNSPECIFIED Status: Acute Current Visit: Yes Qualifiers: GI bleed type/associated pathology: unspecified gastrointestinal hemorrhage type Qualified Code(s): K92.2 - Gastrointestinal hemorrhage, unspecified (3) Long-term (current) use of anticoagulants, INR goal 2.0-3.0 SNOMED Code(s): 591112057, 088459003 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 Discharge to home with no Coumadin or nonsteroidal anti-inflammatories. 2. Did discuss home health service. She defers. Apparently she has good family support. 3. The previous physician did not order a GI consult. That should be considered in the future outpatient.
--- NOTE | 2018-09-14 08:04 | PCM.DCSUM1 ---
Discharge Summary - Hospital Course Free Text/Narrative:: Hospital course-patient's blood pressure was low so the previous doctor decreased her metoprolol XL from 150 mg to 50 mg a day. She was hydrated put on a PPI. Patient was still dizzy and was given 2 units of RBCs. Her Coumadin and aspirin were held. Plavix was continued because she just had stents placed a month ago. She is watch for the next few days and had PT/OT and did quite well. She maintained her hemoglobin around 10. She was given iron twice a day. The previous provider did not order a GI consult and so I did not either because she was given rate go home. We'll discharge her to home. I did ask about home health that she deferred. Barely she has good family support. We'll have her come back and see her primary provider in 5 days with a CBC. He is to hold nonsteroidal anti-inflammatories and Coumadin. Continue Plavix. Brief History: Mr. Stephenson was admitted because of anemia. She presents today ER last night ,complaining of 2 days of fatigue,dizziness and black tarry stools. She has a history of coronary disease with a stent placed in July and is currently Plavix. She also has a history of CHF, afib- and is on chronic anticoagulation with Coumadin. She denies any nausea vomiting ,and also denies having abdominal pain, chest pain or shortness of breath. No diarrhea as such,and no urinary symptoms. Diagnosis: Stroke: No - Discharge Data Discharge Date: 09/14/18 Discharge Disposition: Home, Self-Care 01 Condition: Stable - Discharge Diagnosis/Problem(s) (1) Anemia SNOMED Code(s): 776425307 ICD Code: D64.9 - ANEMIA, UNSPECIFIED Status: Acute Current Visit: Yes Qualifiers: Iron deficiency anemia type: chronic blood loss (2) GI bleed SNOMED Code(s): 15126025 ICD Code: K92.2 - GASTROINTESTINAL HEMORRHAGE, UNSPECIFIED Status: Acute Current Visit: Yes Qualifiers: GI bleed type/associated pathology: unspecified gastrointestinal hemorrhage type Qualified Code(s): K92.2 - Gastrointestinal hemorrhage, unspecified (3) Long-term (current) use of anticoagulants, INR goal 2.0-3.0 SNOMED Code(s): 529769410, 111682105 ICD Code: Z79.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 OT Reason for Consult: ADL's This query below is only for informational purposes and is not editable. Admission Diagnosis/Problem: Gastric ulcer with hemorrhage PT Evaluation and Treatment [CONS] Routine Please Evaluate and Treat. PT Reason for Consult: Ambulation This query below is only for informational purposes and is not editable. Admission Diagnosis/Problem: Gastric ulcer with hemorrhage - Patient Instructions Diet: Heart Healthy Diet Activity: As Tolerated Driving: Do Not Drive Showering/Bathing: May Shower Notify Provider of: Increased Pain, Nausea and/or Vomiting Other/Special Instructions: 1. Recheck with Dr. Tanner this coming Saturday with a CBC. 2. Hold nonsteroidal anti-inflammatories and her Coumadin. Continue to use her Plavix since she just had stents placed. - Discharge Plan Prescriptions/Med Rec: Ferrous Sulfate 325 mg PO BIDMEALS #60 tablet Omeprazole 20 mg PO BEDTIME #30 cap.sr Home Medications: Home Meds Lisinopril 10 mg PO DAILY 02/18/14 [History] Ciclopirox [Loprox 0.77% Crm] 1 applic TOP BID #1 tube 06/12/18 [Rx] Furosemide [Lasix] 60 mg PO BIDDIURETIC #120 tablet 06/12/18 [Rx] Potassium Chloride [Klor-Con 8] 8 meq PO BID #60 tab.er 06/12/18 [Rx] Acetaminophen 1,000 mg PO TID PRN 09/09/18 [History] Albuterol Sulfate [Proair Hfa] 2 inh INH Q4H PRN 09/09/18 [History] Calcium Carbonate/Vitamin D3 [Calcium Carb 500 MG] 1,250 mg PO DAILY 09/09/18 [ History] Cholecalciferol (Vitamin D3) [Vitamin D3] 1,000 units PO DAILY 09/09/18 [History ] Clopidogrel [Plavix] 75 mg PO DAILY 09/09/18 [History] Pravastatin Sodium [Pravachol] 20 mg PO DAILY 09/09/18 [History] Ferrous Sulfate 325 mg PO BIDMEALS #60 tablet 09/14/18 [Rx] Metoprolol Succinate [Toprol XL 50mg] 50 mg PO DAILY #0 09/14/18 [Rx] Omeprazole 20 mg PO BEDTIME #30 cap.sr 09/14/18 [Rx] Patient Handouts: Deep Vein Thrombosis Forms: ED Department Discharge Referrals: Oscar Tanner MD [Primary Care Provider] - - Discharge Summary/Plan Comment DC Time >30 min.: No - Patient Data Vitals - Most Recent: Last Vital Signs Temp 97.5 F 09/14/18 02:30 Pulse 90 09/14/18 02:30 Resp 20 09/14/18 02:30 BP 104/58 L 09/14/18 02:30 Pulse Ox 96 09/14/18 02:30 Weight - Most Recent: 182 lb 8 oz I&O - Last 24 hours: Intake & Output 09/13/18 09/14/18 09/14/18 22:59 06:59 14:59 Output Total 200 300 Balance -200 -300 Lab Results - Last 24 hrs: Laboratory Results - last 24 hr 09/14/18 Range/Units 06:25 WBC 6.8 (4.5-12.0) X10-3/uL RBC 3.19 L (3.23-5.20) x10(6)uL Hgb 10.1 L (11.5-15.5) g/dL Hct 29.6 L (30.0-51.3) % MCV 92.9 (80-96) fL MCH 31.7 (27.7-33.6) pg MCHC 34.1 (32.2-35.4) g/dL RDW 13.8 (11.5-15.5) % Plt Count 269 (125-369) X10(3)uL MPV 7.6 (7.4-10.4) fL Neut % (Auto) 54.8 (46-82) % Lymph % (Auto) 27.1 (13-37) % [place] % (Auto) 11.1 (4-12) % Eos % (Auto) 6 H (1.0-5.0) % Baso % (Auto) 1 (0-2) % Neut # (Auto) 3.7 (1.6-8.3) # Lymph # (Auto) 1.8 (0.6-5.0) # [place] # (Auto) 0.8 (0.0-1.3) # Eos # (Auto) 0.4 (0.0-0.8) # Baso # (Auto) 0.1 (0.0-0.2) # [facility] Results - Last 24 hrs: Microbiology 09/13/18 14:10 Occult Blood - Preliminary Stool / Feces Med Orders - Current: Current Medications Acetaminophen (Tylenol) 650 mg PO Q4H PRN PRN Reason: Pain (Mild 1-3)/fever Albuterol (Ventolin Hfa) 0 gm INH Q4H PRN PRN Reason: Dyspnea Bisacodyl (Dulcolax) 5 mg PO DAILY PRN PRN Reason: Constipation Calcium Carbonate (Calcium Carbonate/Vitamin D 1250 Mg-200 Unit) 1 tab PO DAILY [facility] Last Admin: 09/13/18 09:09 Dose: 1 tab Cholecalciferol (Vitamin D3) 1,000 units PO DAILY [facility] Last Admin: 09/13/18 09:10 Dose: 1,000 units Clopidogrel Bisulfate (Plavix) 75 mg PO DAILY [facility] Last Admin: 09/13/18 09:09 Dose: 75 mg Ferrous Sulfate (Ferrous Sulfate) 325 mg PO BIDMEALS [facility] Last Admin: 09/13/18 17:59 Dose: 325 mg Furosemide (Lasix) 60 mg PO BIDDIURETIC [facility] Last Admin: 09/13/18 14:17 Dose: 60 mg Sodium Chloride (Normal Saline) 250 mls @ 100 mls/hr IV ASDIRECTED [facility] Lisinopril (Prinivil) 10 mg PO DAILY [facility] Last Admin: 09/13/18 09:09 Dose: 10 mg Metoprolol Succinate (Toprol Xl) 50 mg PO DAILY [facility] Last Admin: 09/13/18 09:09 Dose: 50 mg Ondansetron HCl (Zofran) 4 mg IV Q4H PRN PRN Reason: Nausea/Vomiting Pantoprazole Sodium (Protonix Iv) 40 mg IVPUSH Q24H [facility] Last Admin: 09/13/18 09:10 Dose: 40 mg Potassium Chloride (Klor-Con M20) 20 meq PO DAILY [facility] Last Admin: 09/13/18 09:09 Dose: 20 meq Pravastatin Sodium (Pravachol) 20 mg PO DAILY [facility] Last Admin: 09/13/18 09:09 Dose: 20 mg Sodium Chloride (Saline Flush) 10 ml FLUSH ASDIRECTED PRN PRN Reason: saline flush for lock Last Admin: 09/13/18 09:10 Dose: 10 ml Discontinued Medications Ciclopirox Olamine (Loprox 0.77% Crm) 0 gm TOP BID [facility] Last Admin: 09/11/18 08:38 Dose: Not Given Sodium Chloride (Normal Saline) 1,000 mls @ 150 mls/hr IV ASDIRECTED [facility] Last Admin: 09/10/18 07:11 Dose: 150 mls/hr Phytonadione 5 mg/ Sodium (Chloride) 50.5 mls @ 100 mls/hr IV NOW ONE Stop: 09/09/18 19:25 Last Admin: 09/09/18 20:40 Dose: 100 mls/hr Sodium Chloride (Normal Saline) 1,000 mls @ 75 mls/hr IV ASDIRECTED [facility] Metoprolol Succinate (Toprol Xl) 150 mg PO DAILY [facility] Last Admin: 09/11/18 08:40 Dose: 150 mg Potassium Chloride (Klor-Con 8) 8 meq PO BID [facility] Last Admin: 09/11/18 08:38 Dose: 8 meq
[2018-09-14] MEDS: Metoprolol Succinate 50 MG Tab.ER PO SCH (08:20)
[2018-09-14] MEDS: Ferrous Sulfate 325 MG Tab PO SCH (08:20)
[2018-09-14] MEDS: Furosemide 20 MG Tab PO SCH (08:20)
[2018-09-14] MEDS: Calcium Carbonate/Vitamin D3 1250 MG-200 Unit Tab PO SCH (08:21)
[2018-09-14] MEDS: Potassium Chloride 20 MEQ Tab.ER PO SCH (08:21)
[2018-09-14] MEDS: Clopidogrel 75 MG Tab PO SCH (08:22)
[2018-09-14] MEDS: Cholecalciferol (Vitamin D3) 1,000 Unit Tab PO SCH (08:22)
[2018-09-14] MEDS: Pravastatin 20 MG Tab PO SCH (08:22)
[2018-09-14] MEDS: Lisinopril 10 MG Tab PO SCH (08:22)
[2018-09-14] MEDS: Pantoprazole 40 MG Vial IVPUSH SCH (08:32)
[2018-09-14] MEDS: Sodium Chloride 0.9% 10 ML Syringe FLUSH PRN (08:32)
== END 2018-09-14 09:40 | disposition home or self-care (01) | DRG 812 ==
LOC: FB.ED 15:20 → FB.MS 20:14
PROVIDERS: ADMIT Emergency Medicine; ATTEND Family Medicine
PROC: 30233N1 Transfusion of Nonautologous Red Blood Cells into Peripheral Vein, Percutaneous Approach (ICD-10-PCS; principal; 2018-09-11)
DX: D64.9 Anemia, unspecified (principal); K92.2 Gastrointestinal hemorrhage, unspecified; I50.20 Unspecified systolic (congestive) heart failure; Z51.5 Encounter for palliative care; I11.0 Hypertensive heart disease with heart failure; I48.91 Unspecified atrial fibrillation; R19.5 Other fecal abnormalities; R42 Dizziness and giddiness; J44.9 Chronic obstructive pulmonary disease, unspecified; E87.6 Hypokalemia; E78.5 Hyperlipidemia, unspecified; M19.90 Unspecified osteoarthritis, unspecified site; Z95.5 Presence of coronary angioplasty implant and graft; Z79.01 Long term (current) use of anticoagulants; Z96.649 Presence of unspecified artificial hip joint
CPT/HCPCS: 36415; 80053; 82272; 85018; 85025; 85610; 85730; 93005; 96361; 99284; 99285; J7030; 36410; 36430; 80048; 82270; 85014; 86850; 86900; 86901; 86920; 86922; 96374; A9270-GY; C9113; J3430; J7050; P9016